=== PATIENT | female | born 1990 | race American Indian/Alaskan Native ===

== ENCOUNTER 2019-10-03 19:39 | Emergency (ER) | payer OTHER ==
--- NOTE | 2019-10-03 20:01 | Emergency Department Report ---
Blank Doc - Documentation Documentation: 29-year-old female that presents with vaginal discharge and right foot pain, d enies any injuries. This initial assessment/diagnostic orders/clinical plan/treatment(s) is/are subject to change based on patient's health status, clinical progression and re- assessment by fellow clinical providers in the ED. Further treatment and workup at subsequent clinical providers discretion. Patient/guardians urged not to elope from the ED as their condition may be serious if not clinically assessed and managed. Initial orders include: 1- Patient sent to [facility] for further evaluation and treatment 2- pelvic exam to be done 3- UA
[2019-10-03 20:03] VITALS: BP 109/74
[2019-10-03 20:58] LABS: HCG Qualitative,Urine Negative (Negative)
[2019-10-03 21:00] LABS: Bacteria,Urine 1+ /HPF (Negative); Bilirubin,Urine NEG (Negative); Blood,Urine MOD (Negative); Color,Urine Straw (Yellow); Mucus,Urine FEW /HPF; Protein,Urine <15 mg/dL mg/dL (Negative); Urobilinogen,Urine < 2.0 mg/dL (<2.0)
--- NOTE | 2019-10-03 23:37 | Emergency Department Report ---
HPI - General Chief Complaint: Urogenital-Female Time Seen by Provider: 10/03/19 19:58 - HPI HPI: Room 37 The patient is a 29-year-old female presenting with a chief complaint of vaginal odor. The patient states she believes she has bacterial vaginosis because she developed vaginal odor for the past week. Patient states this normally happens whenever she has BV. Patient states she hears herself home to look at her vagina and saw white vaginal discharge 2 days ago. Patient denies dysuria or hematuria. Patient denies history of fever. Location: [See above] Duration: [See above] Quality: [See above] Severity: [See above] Timing: [See above] Context: [See above] Modifying factors: [See above] Associated signs and symptoms: [see above] ED Past Medical Hx - Past Medical History Previous Medical History?: No Additional medical history: Ulcerative colitis - Surgical History Past Surgical History?: No - Family History Family history: no significant - Social History Smoking Status: Never Smoker Substance Use Type: None (denies illicit drug use), Alcohol (occasional) - Medications Home Medications: Home Medications Medication Instructions Recorded Confirmed Last Taken Type metroNIDAZOLE [Flagyl] 500 mg PO Q12HR #14 tab 10/04/19 Unknown Rx ED Review of Systems ROS: Stated complaint: VAGINAL DISCHARGE/LEG/FOOT PAIN Other details as noted in HPI Constitutional: denies: fever Eyes: denies: eye pain ENT: denies: throat pain Respiratory: no symptoms reported Cardiovascular: denies: chest pain Endocrine: no symptoms reported Gastrointestinal: denies: vomiting Genitourinary: discharge, other (vaginal odor). denies: dysuria, hematuria Musculoskeletal: denies: back pain Neurological: headache Physical Exam - Physical Exam Vital Signs: Vital Signs 10/03/19 10/03/19 19:47 20:02 Temperature 98.3 F 98.3 F Pulse Rate 77 69 Respiratory 18 18 Rate Blood Pressure 109/74 109/74 O2 Sat by Pulse 100 100 Oximetry Physical Exam: GENERAL: The patient is well-developed well-nourished female lying on stretcher not appearing to be in acute distress. [] HEENT: Normocephalic. Atraumatic. Extraocular motions are intact. Patient has moist mucous membranes. NECK: Supple. Trachea midline CHEST/LUNGS: Clear to auscultation. There is no respiratory distress noted. HEART/CARDIOVASCULAR: Regular. There is no tachycardia. There is no gallop rub or murmur. ABDOMEN: Abdomen is soft, nontender. Patient has normal bowel sounds. There is no abdominal distention. SKIN: There is no rash. There is no edema. There is no diaphoresis. NEURO: The patient is awake, alert, and oriented. The patient is cooperative. The patient has normal speech MUSCULOSKELETAL: There is no evidence of acute injury.\ PELVIC: The patient currently on her cycle. Small amount of dark red blood present in the vault ED Course Vital Signs 10/03/19 10/03/19 19:47 20:02 Temperature 98.3 F 98.3 F Pulse Rate 77 69 Respiratory 18 18 Rate Blood Pressure 109/74 109/74 O2 Sat by Pulse 100 100 Oximetry ED Medical Decision Making - Medical Decision Making Although patient's wet prep shows less than 20% clew cells will treat patient appeared fairly for bacterial vaginosis given her previous history of the same and similar presentation. Patient will also be covered appear clinically for gonorrhea and chlamydia. - Differential Diagnosis UTI, bacterial vaginosis, , vaginitis Critical care attestation.: If time is entered above; I have spent that time in minutes in the direct care of this critically ill patient, excluding procedure time. ED Disposition Clinical Impression: Vaginal discharge, Vaginal odor Disposition: - TO HOME OR SELFCARE Is pt being admited?: No Does the pt Need Aspirin: No Condition: Stable Instructions: Bacterial Vaginosis (ED) Additional Instructions: Return to the emergency department should you develop worsening symptoms, inability to tolerate food or liquids, high fever or any other concerns Prescriptions: metroNIDAZOLE [Flagyl] 500 mg PO Q12HR #14 tab Referrals: VERÓNICA LOVE MD [Staff Physician] - 3-5 Days (Dr Love is a primary physician. Please follow-up with him for further evaluation) LUPE BENSON MD [Staff Physician] - 3-5 Days (Dr. Benson is a clean up helper banquet. Please follow-up with her to be established as a patient) Time of Disposition: 00:30
[2019-10-04] MEDS ORDERED: LIDOCAINE-MPF (1%) 10 MG/1 ML VIAL 5 ML INFILTRATI ONE (00:24)
[2019-10-04] MEDS ORDERED: AZITHROMYCIN 1 GM ORAL PWDR PACKET PO ONE (00:24)
== END 2019-10-04 01:27 | disposition home or self-care (01) ==
LOC: ED 19:39
DX: N89.8 Other specified noninflammatory disorders of vagina (principal)
CPT/HCPCS: 81001; 81025; 87210; 87591; 96372; 99283; J0696